=== PATIENT | female | born 1975 | race Caucasian/White ===

== ENCOUNTER 2021-03-14 02:19 | Emergency (ER) | payer OTHER ==
[2021-03-14] MEDS ORDERED: IBUPROFEN 600 MG TABLET PO STA (02:38)
[2021-03-14 03:01] VITALS: BP 113/80
--- NOTE | 2021-03-14 03:12 | ED Physician Documentation ---
History of Present Illness - Stated complaint Stated Complaint: FEVER, HEADACHE, BODY ACHE, CHILLS - Chief complaint Chief Complaint: General - History obtained from History obtained from: Patient - Additonal information Additional information: 45yF, previously healthy, on suboxone (stable with no recent changes in meds) p/w fever X 1 week with tmax 106 by temporal thermometer tonight. patient just bought the thermometer from [employer]. came to the ED because she was concerned the temperature was so high. endorses malaise, body aches over the past week but no specific symptoms. +recent travel to [place]. unvaccinated against covid-19. Review of Systems Ten Systems: 10 systems reviewed and negative Constitutional: reports: Fever, Chills, Myalgias, Fatigue Eyes: denies: Loss of vision, Photophobia, Discharge Ears: denies: Ear pain, Drainage/discharge, Tinnitus/ringing Nose: denies: Rhinorrhea / runny nose, Congestion Throat: denies: Sore throat Cardiac: denies: Chest pain / pressure Respiratory: denies: Dyspnea, Cough GI: denies: Abdominal Pain, Nausea, Vomiting, Diarrhea : denies: Dysuria, Frequency, Hematuria Skin: denies: Rash Musculoskeletal: reports: Back pain PD PAST MEDICAL HISTORY - Past Medical History Past Medical History: Yes Psych: Other Other Past Medical History: Drug addiction - Past Surgical History Past Surgical History: Yes /[employer]: section - Present Medications Home Medications: Ambulatory Orders Medication Instructions Recorded Confirmed Buprenorphine HCl/Naloxone HCl 1 film DAILY 03/14/21 03/14/21 [Suboxone 4 mg-1 mg Sl Film] - Allergies Allergies/Adverse Reactions: Allergies Allergy/AdvReac Type Severity Reaction Status Date / Time codeine Allergy Unknown Verified 03/14/21 02:35 Penicillins Allergy Unknown Verified 03/14/21 02:36 - Social History Does the pt smoke?: No Smoking Status: Never smoker Does the pt drink ETOH?: No Does the pt have substance abuse?: Yes Substance Use and Type: Prescription Pills - Immunizations Immunizations are current?: Yes - POLST Patient has POLST: No PD ED PE NORMAL - Vitals Vital signs reviewed: Yes - General General: Alert and oriented X 3, No acute distress, Well developed/nourished - HEENT HEENT: Atraumatic, PERRL, EOMI - Neck Neck: Supple, no meningeal sign - Cardiac Cardiac: RRR - Respiratory Respiratory: No respiratory distress, Clear bilaterally - Abdomen Abdomen: Non tender, Non distended - Derm Derm: Normal color, Warm and dry - Extremities Extremities: No deformity - Neuro Neuro: Alert and oriented X 3 - Psych Psych: Normal mood, Normal affect Results - Vitals Vitals: Vital Signs - 24 hr 03/14/21 03/14/21 03/14/21 02:20 02:41 03:00 Temperature 38.1 C H 38.1 C H Heart Rate 113 H 113 H 95 Respiratory 18 18 18 Rate Blood Pressure 122/102 H 122/102 H 113/80 O2 Saturation 98 98 99 Oxygen O2 Source Room air PD MEDICAL DECISION MAKING - ED course ED course: 45yF p/w fever of unknown origin X 1 week with negative ROS aside from malaise and body aches. d/w patient that we can do a covid test here and she may have a viral syndrome that should be monitored. symptomatic care discussed and patient will plan to f/u with her pmd with [facility]. return precautions given. Departure - Departure Disposition: 01 Home, Self Care Clinical Impression: Fever Condition: Good Instructions: ED Fever Control Comments: You were seen in the emergency department for fever. A covid test was sent and you can view the results on your patient health portal on the [facility] website or call the hospital for your results. Please set up an appointment with your primary doctor and stay home and get lots of rest. Return to the ED if you have new or worsening symptoms or other concerns.
[2021-03-14 03:35] LABS: B. PARAPERTUSSIS- RESP PCR PAN NOT DETECTED; B. PERTUSSIS- RESP PCR PANEL NOT DETECTED; C. PNEUMONIAE- RESP PCR PANEL NOT DETECTED; CORONAVIRUS 229E-RESP PCR NOT DETECTED; CORONAVIRUS HKU1-RESP PCR NOT DETECTED; CORONAVIRUS NL63-RESP PCR NOT DETECTED; CORONAVIRUS OC43-RESP PCR NOT DETECTED; HUMAN METAPNEUMOVIRUS NOT DETECTED; INFLUENZA A- RESP PCR PANEL NOT DETECTED; INFLUENZA B - RESP PCR PANEL NOT DETECTED; M. PNEUMONIAE- RESP PCR PANEL NOT DETECTED; PARAINFLUENZA VIRUS 1 NOT DETECTED; PARAINFLUENZA VIRUS 2 NOT DETECTED; PARAINFLUENZA VIRUS 3 NOT DETECTED; PARAINFLUENZA VIRUS 4 NOT DETECTED; RHINOVIRUS/ENTEROVIRUS NOT DETECTED; RSV- RESP PCR PANEL NOT DETECTED; SARS-CoV-2 -RESP PCR PANEL NOT DETECTED
== END 2021-03-14 03:18 | disposition home or self-care (01) ==
LOC: ED 02:19
DX: R50.9 Fever, unspecified (principal); Z20.822 Contact with and (suspected) exposure to COVID-19; R53.83 Other fatigue
CPT/HCPCS: 0202U; 99282; 99283; A9270